=== PATIENT | female | born 2000 | race Caucasian/White ===

== ENCOUNTER 2019-05-24 10:01 | Emergency (ER) | payer BC, MEDICAID ==
[2019-05-24 11:26] LABS: ABSOLUTE BASOPHILS # (AUTO) 0.1 10^3/uL (0.0-0.2); ABSOLUTE EOSINOPHILS # (AUTO) 0.2 10^3/uL (0.0-0.6); ABSOLUTE LYMPHOCYTES (AUTO) 3.1 10^3/uL (0.5-4.7); ABSOLUTE MONOCYTES (AUTO) 0.7 10^3/uL (0.1-1.4); ABSOLUTE NEUT (AUTO) 6.1 10^3/uL (1.7-8.2); BASOPHILS % (AUTO) 0.8 % (0-2); EOSINOPHILS % (AUTO) 1.5 % (0-6); HEMATOCRIT 38.3 % (36.0-47.0); HEMOGLOBIN 12.7 g/dL (12.0-15.5); LYMPHOCYTES % (AUTO) 30.5 % (13-45); MEAN CORPUSCULAR HEMOGLOBIN 27.6 pg (27.0-33.4); MEAN CORPUSCULAR HGB CONC 33.3 g/dL (32.0-36.0); MEAN CORPUSCULAR VOLUME 83 fl (80-97); MONOCYTES % (AUTO) 7.3 % (3-13); PLATELET COUNT 339 10^3/uL (150-450); RED BLOOD COUNT 4.62 10^6/uL (3.72-5.28); RED CELL DISTRIBUTION WIDTH 13.3 % (11.5-14.0); SEGMENTED NEUTROPHILS % (AUTO) 59.9 % (42-78); TOTAL CELLS COUNTED % (AUTO) 100 %; WHITE BLOOD COUNT 10.3 10^3/uL (4.0-10.5)
[2019-05-24] MEDS ORDERED: CEPHALEXIN 500 MG CAPSULE PO ONE (11:44)
[2019-05-24] MEDS ORDERED: OXYCODONE-ACETAMINOPHEN 5-325 MG TABLET PO ONE (11:44)
[2019-05-24] MEDS ORDERED: SULFAMETHOXAZOLE/TRIMETHOPRIM 800-160 MG TABLET PO ONE (11:44)
--- NOTE | 2019-05-24 11:45 | ER Document Report ---
HPI - HPI Patient complains to provider of: abscess Time Seen by Provider: 05/24/19 10:57 Onset: Other - 5 days Onset/Duration: Waxing and waning Quality of pain: Achy Pain Level: 2 Context: Patient presents complaining of abscess to the right forearm in the right lower abdomen. Patient states that the area to her forearm was much larger and more swollen, although patient states that she has been squeezing on the area and draining pus. Patient states that the form area of redness is less than it was previously. Patient reports that the redness surrounding abdominal abscess seems to be worsening. Patient denies any fever or history of MRSA. Patient denies any history of IV drug use. Associated Symptoms: Other - Abscess to abdomen and right forearm. denies: Fever Exacerbated by: Movement Relieved by: Denies Similar symptoms previously: No Recently seen / treated by doctor: No - ROS ROS below otherwise negative: Yes Systems Reviewed and Negative: Yes All other systems reviewed and negative - CONSTITUTIONAL Constitutional: DENIES: Fever, Chills - NEURO Neurology: DENIES: Weakness - GASTROINTESTINAL Gastrointestinal: DENIES: Nausea, Patient vomiting - REPRODUCTIVE LMP: 04/2017 Reproductive: DENIES: : - MUSCULOSKELETAL Musculoskeletal: REPORTS: Extremity pain - DERM Skin Color: Erythema Notes: Abscess to abdomen and forearm Past Medical History - General Information source: Patient - Social History Smoking Status: Never Smoker Chew tobacco use (# tins/day): No Frequency of alcohol use: None Drug Abuse: None Occupation: None Lives with: Family Family History: Reviewed & Not Pertinent Patient has suicidal ideation: No Patient has homicidal ideation: No - Medical History Medical History: Negative Surgical Hx: Negative Vertical Provider Document - CONSTITUTIONAL Agree With Documented VS: Yes Exam Limitations: No Limitations General Appearance: WD/WN, No Apparent Distress - INFECTION CONTROL TRAVEL OUTSIDE OF THE [place] IN LAST 30 DAYS: No - HEENT HEENT: Atraumatic, Normocephalic - NECK Neck: Normal Inspection, Supple - RESPIRATORY Respiratory: Breath Sounds Normal, No Respiratory Distress - CARDIOVASCULAR Cardiovascular: Regular Rate, Regular Rhythm - BACK Back: Normal Inspection - MUSCULOSKELETAL/EXTREMETIES Musculoskeletal/Extremeties: MAEW - NEURO Level of Consciousness: Awake, Alert, Appropriate Motor/Sensory: No Motor Deficit - DERM Integumentary: Warm, Dry Adult Front & Back Diagram: 1 - Tender, indurated erythematous lesion to right forearm, no fluctuance 2 - Patient with fluctuant central lesion with surrounding erythema worrisome for abscess with cellulitis Course - Re-evaluation Re-evalutation: 05/24/19 13:38 Patient with small amount of purulent drainage from the abdominal abscess. Will cover with antibiotics cellulitis as well as for MRSA.. Discussed worsening symptoms that patient should return for. Patient verbalized understanding and agrees with plan of care. - Vital Signs Vital signs: Temp Pulse Resp BP Pulse Ox 98.6 F 100 16 138/83 H 98 05/24/19 10:06 05/24/19 10:06 05/24/19 10:06 05/24/19 10:06 05/24/19 10:06 - Laboratory Result Diagrams: 05/24/19 11:12 Laboratory results interpreted by me: 05/24/19 13:37 Labs- Entire Visit 05/24/19 11:12 WBC 10.3 RBC 4.62 Hgb 12.7 Hct 38.3 MCV 83 MCH 27.6 MCHC 33.3 RDW 13.3 Plt Count 339 Lymph % (Auto) 30.5 [place] % (Auto) 7.3 Eos % (Auto) 1.5 Baso % (Auto) 0.8 Absolute Neuts (auto) 6.1 Absolute Lymphs (auto) 3.1 Absolute Monos (auto) 0.7 Absolute Eos (auto) 0.2 Absolute Basos (auto) 0.1 Seg Neutrophils % 59.9 Procedures - Incision and Drainage Right Abdomen Type: Simple Anesthetic type: 1% Lidocaine Blade size: 11 I&D procedure: Betadine prep applied Incision Method: Incision made by scalpel Amount/type of drainage: small amount of purulent drainage Adult Front & Back picture: 1 - Abdominal wall abscess Discharge - Discharge Clinical Impression: Abscess, Encounter for incision and drainage procedure Cellulitis Qualifiers: Site of cellulitis: trunk Site of cellulitis of trunk: abdominal wall Qualified Code(s): L03.311 - Cellulitis of abdominal wall Condition: Stable Disposition: HOME, SELF-CARE Instructions: Abscess ([facility]), Cephalexin ([facility]), Oral Narcotic Medication ([facility]), Post Incision and Drainage, Trimethoprim-Sulfa ([facility]) Additional Instructions: Return immediately for any new or worsening symptoms Followup with your primary care provider, call tomorrow to make a followup appointment Apply warm compresses to area for about 15 minutes as often as every hour while awake only Monitor for any worsening signs of infection such as increased pain, redness, fever or lack of improvement. Return immediately for any concerning symptoms. Prescriptions: Sulfamethoxazole/Trimethoprim [Bactrim Ds Tablet] 1 each PO BID #20 tablet Mupirocin [Bactroban 2% Ointment 22 gm] 1 applic TP TID #22 gm Cephalexin Monohydrate [Keflex 500 mg Capsule] 500 mg PO Q6H 7 Days capsule Hydrocodone/Acetaminophen [[place] 5-325 mg Tablet] 1 tab PO Q6 PRN #10 tablet PRN Reason: Referrals: HEMA MASCORRO MD [ACTIVE STAFF] - Follow up as needed
[2019-05-24 13:45] VITALS: BP 121/80
== END 2019-05-24 13:51 | disposition home or self-care (01) ==
LOC: ER 10:01
DX: L03.311 Cellulitis of abdominal wall (principal); L02.413 Cutaneous abscess of right upper limb
CPT/HCPCS: 36415; 85025; 99283